=== PATIENT | male | born 1985 | race Caucasian/White ===

== ENCOUNTER 2017-01-06 02:59 | Emergency (ER) | payer SELFPAY ==
[~2017-01-06] VITALS: Ht 167.6 cm; Wt 57.0 kg
[~2017-01-06 02:59] MED LIST: OXYC-392 PO; VITA100T2 PO; WALKER/ADULT/FO1 MIS; XARE10TA PO
[2017-01-06 03:10] VITALS: BP 117/72; PULSE 90; RESP 16; TEMP 98.2; O2SAT 99
--- NOTE | 2017-01-06 03:11 | PD ---
HPI Chief Complaint: Injury Time Seen by Provider: 03:03 Travel History International Travel<30 days: No Contact w/Intl Traveler<30days: No Traveled to known affect area: No History of Present Illness HPI 31-year-old [id number] white male presents to emergency department by EMS for evaluation of right shoulder pain after he tripped and fall prior to arrival. Patient admits to drinking alcohol. He states that he had caught his shoelace on a log as he attempted to climb over. Patient states that he had fallen directly onto his right shoulder. This is his shoulder which she had fractured in the past. Pain is moderate. Worse with movement. No alleviating factors. Denies injury to his head, neck or back. PFSH Past Medical History Narrative Medical Alcohol abuse, right proximal humerus fracture Cardiovascular Problems: No Endocrine: No Genitourinary: No Immune Disorder: No Musculoskeletal: No Neurologic: No Reproductive: No Respiratory: No Immunizations Current: Yes Past Surgical History Narrative Surgical Right proximal humerus ORIF Pacemaker: No Social History Alcohol Use: Yes (OCC) Tobacco Use: Yes Substance Use: No Allergies-Medications (Allergen,Severity, Reaction): Coded Allergies: penicillin G (Unverified Allergy, Unknown, Hives, 01/06/17) Reported Meds & Prescriptions Reported Meds & Active Scripts Active Hydrocodone-Acetaminophen 5-325 mg Tab 1 Tab PO Q6H PRN Review of Systems General / Constitutional: No: Fever Eyes: No: Visual changes HENT: No: Headaches, Neck Stiffness, Neck Pain Cardiovascular: No: Chest Pain or Discomfort Respiratory: No: Shortness of Breath Gastrointestinal: No: Abdominal Pain Genitourinary: No: Dysuria Musculoskeletal: Positive: Arthralgias, Limited ROM, Pain, No: Weakness, Edema Skin: No Rash Neurologic: No: Weakness Psychiatric: No: Depression Endocrine: No: Polydipsia Hematologic/Lymphatic: No: Easy Bruising Physical Exam Narrative GENERAL: Well-developed, well-nourished in no apparent distress. Nontoxic appearing. HEAD: Normocephalic, atraumatic. EYES: Pupils equal round and reactive. Extraocular motions intact. No scleral icterus. No injection or drainage. ENT: Nose clear. Throat without erythema, tonsillar hypertrophy or exudate. Uvula midline. Airway patent. NECK: Trachea midline. Supple, nontender, moves head freely. No central bony tenderness or spasm. CARDIOVASCULAR: Regular rate and rhythm without murmurs, gallops, or rubs. RESPIRATORY: Clear to auscultation. Breath sounds equal bilaterally. No wheezes , rales, or rhonchi. GASTROINTESTINAL: Abdomen soft, non-tender, nondistended. No hepato-splenomegaly , or palpable masses. No guarding. EXTREMITIES: No clubbing, cyanosis, or edema. Examination the right upper extremity reveals tenderness along the clavicle to the acromioclavicular joint. Patient complains of diffuse pain in the glenohumeral joint. Decreased range of motion due to pain. No pain in the mid to distal humerus. No pain in the elbow, wrist or hand. Intact median/ulnar/radial nerves. The left upper extremity as well as lower extremities are without localizing bony tenderness or deformity. BACK: Nontender without deformity. No flank tenderness. NEUROLOGICAL: Awake, alert and oriented x 3 .Cranial nerves grossly intact. Motor and sensory grossly within normal limits. Normal speech. Data Data Last Documented VS Vital Signs Date Time Temp Pulse Resp B/P (MAP) Pulse Ox O2 Delivery O2 Flow Rate FiO2 01/06/17 03:10 98.2 90 16 117/72 (87) 99 Room Air Orders Orders Ice/Cold Pack (01/06/17 03:04) Splint Or Brace Apply/Monitor (01/06/17 03:04) Ketorolac Inj (Toradol Inj) (01/06/17 03:15) Shoulder, Limited(2vws) (01/06/17 03:22) Ed Discharge Order (01/06/17 03:46) Acetamin-Hydrocod 325-5 Mg ([place] 5-325 (01/06/17 04:00) MDM Medical Decision Making Medical Screen Exam Complete: Yes Emergency Medical Condition: Yes Medical Record Reviewed: Yes Interpretation(s) Right shoulder: Patient has a distal clavicle fracture. Prior healed humerus fracture with ORIF Differential Diagnosis MDM: High Differential diagnoses: Fracture, sprain, strain, dislocation, contusion, neurovascular injury Narrative Course Patient's given ice pack, Toradol 60 mg IM, x-ray of the right shoulder. Sling. Diagnosis Primary Impression: Closed right clavicular fracture Qualified Codes: S42.034A - Nondisplaced fracture of lateral end of right clavicle, initial encounter for closed fracture Patient Instructions: General Instructions Additional Instructions: Rest. Icepack for the next few days. Sling. 3 Advil every 6 hours. Lortab for severe pain. Limited alcohol. Follow-up with orthopedics in 3-5 days. Return to the ER for emergencies Med/Other Pt SpecificInfo: Prescription(s) given Scripts Hydrocodone-Acetaminophen (Hydrocodone-Acetaminophen) 5-325 mg Tab 1 TAB PO Q6H Y for PAIN, #20 TAB 0 Refills Prov: Sang Denton MD 01/06/17 Disposition: 01 DISCHARGE HOME Condition: Stable Esau Santos Jan 06, 2017 03:11
[2017-01-06] MEDS ORDERED: KETOROLAC TROMETHAMINE 60 MG/2 ML (IM) VIAL IM ONE (03:15)
[2017-01-06] MEDS ORDERED: HYDR-3516 PO (03:46)
[2017-01-06] MEDS ORDERED: ACETAMINOPHEN/HYDROcodone 325 MG/5 MG TAB PO ONE (04:00)
--- NOTE | 2017-01-06 04:02 | RADRPT ---
EXAM DATE/TIME: 01/06/2017 03:28 [facility] COMPARISON: SHOULDER RIGHT LTD (2VWS), September 20, 2012, 20:36. INDICATIONS : Right shoulder pain post fall. MEDICAL HISTORY : None. SURGICAL HISTORY : Right humerus. ENCOUNTER: Initial ACUITY: 1 day PAIN SCORE: 10/10 LOCATION: Right shoulder. FINDINGS: There is fracturing of the lateral right clavicle. The acromioclavicular joint is normally aligned. T here are surgical hardware at the right humeral head. CONCLUSION: Lateral right clavicle fracture. Bashir Cooper MD on January 06, 2017 at 4:00 Board Certified Radiologist. This report was verified electronically.
== END 2017-01-06 04:14 | disposition home or self-care (01) ==
LOC: NEPD 02:59
DX: S42.034A Nondisplaced fracture of lateral end of right clavicle, initial encounter for closed fracture (principal); W01.0XXA Fall on same level from slipping, tripping and stumbling without subsequent striking against object, initial encounter
CPT/HCPCS: 73030; 96372; 99285; J1885

== ENCOUNTER 2017-01-16 14:07 | Emergency (ER) | payer SELFPAY ==
[~2017-01-16] VITALS: Ht 172.7 cm; Wt 61.0 kg
[~2017-01-16 14:07] MED LIST changes: +HYDR-3516 PO; -OXYC-392 PO; -VITA100T2 PO; -WALKER/ADULT/FO1 MIS; -XARE10TA PO
[2017-01-16 14:08] VITALS: BP 143/83; PULSE 91; RESP 14; TEMP 98.6; O2SAT 99
[2017-01-16] MEDS ORDERED: IBUP-232 PO (15:25)
[2017-01-16] MEDS ORDERED: PERC5TAB12 PO (15:25)
--- NOTE | 2017-01-16 15:25 | PD ---
HPI Chief Complaint: Pain: Acute or Chronic Time Seen by Provider: 14:35 Travel History International Travel<30 days: No Contact w/Intl Traveler<30days: No Traveled to known affect area: No History of Present Illness HPI Patient is a 31-year-old male who presents to emergency room for medication refill. Patient reports that he was seen in emergency room on January 06, 2017 as he suffered a clavicle fracture. Patient reports that he fractured his right lateral clavicle, reports that he was given a prescription for 20 oxycodone's. Patient reports that he has had such severe pain to his right clavicle, he completed full course of his pain medications a few days ago. Patient reports that he has not been able to follow-up with an orthopedic surgeon as he forgot his paperwork and the cab on the ride home. Patient currently requesting a refill on his Percocet. Patient denies any new trauma or injuries to his shoulder/clavicle. Patient denies any chest pain or shortness of breath, no other complaints. PFSH Past Medical History Cardiovascular Problems: No Endocrine: No Genitourinary: No Immune Disorder: No Musculoskeletal: No Neurologic: No Reproductive: No Respiratory: No Immunizations Current: Yes Tetanus Vaccination: < 5 Years Influenza Vaccination: No Past Surgical History Pacemaker: No Social History Alcohol Use: Yes (OCC) Tobacco Use: Yes Substance Use: No Allergies-Medications (Allergen,Severity, Reaction): Coded Allergies: penicillin G (Unverified Allergy, Unknown, Hives, 01/16/17) Reported Meds & Prescriptions Reported Meds & Active Scripts Active Hydrocodone-Acetaminophen 5-325 mg Tab 1 Tab PO Q6H PRN Review of Systems General / Constitutional: No: Fever Eyes: No: Visual changes HENT: No: Headaches Cardiovascular: No: Chest Pain or Discomfort Respiratory: No: Shortness of Breath Gastrointestinal: No: Abdominal Pain Genitourinary: No: Dysuria Musculoskeletal: Positive: Pain (clavicle pain) Skin: No Rash Neurologic: No: Weakness Psychiatric: No: Depression Endocrine: No: Polydipsia Hematologic/Lymphatic: No: Easy Bruising Physical Exam Narrative GENERAL: Well-nourished, well-developed patient. SKIN: Focused skin assessment warm/dry. HEAD: Normocephalic. EYES: No scleral icterus. No injection or drainage. NECK: Supple, trachea midline. No JVD or lymphadenopathy. CARDIOVASCULAR: Regular rate and rhythm without murmurs, gallops, or rubs. RESPIRATORY: Breath sounds equal bilaterally. No accessory muscle use. GASTROINTESTINAL: Abdomen soft, non-tender, nondistended. MUSCULOSKELETAL: No cyanosis, or edema. Patient with no obvious deformities, patient with point tenderness to right lateral clavicle BACK: Nontender without obvious deformity. No CVA tenderness. Data Data Last Documented VS Vital Signs Date Time Temp Pulse Resp B/P (MAP) Pulse Ox O2 Delivery O2 Flow Rate FiO2 01/16/17 14:08 98.6 91 14 143/83 (103) 99 Orders Orders Drug Screen, Random Urine (01/16/17 14:35) [facility] Medical Decision Making Medical Screen Exam Complete: Yes Emergency Medical Condition: Yes Medical Record Reviewed: Yes Interpretation(s) Vital Signs Date Time Temp Pulse Resp B/P (MAP) Pulse Ox O2 Delivery O2 Flow Rate FiO2 01/16/17 14:08 98.6 91 14 143/83 (103) 99 Differential Diagnosis medication refill Narrative Course 31-year-old male who presents to emergency room for refill on his narcotic pain medications. Discussed with patient that he must follow-up with orthopedic surgery or pain management for further scripts for his narcotic pain medications. I did review other options for pain medications including Tylenol as well as Motrin for pain. Discussed my concerns that retirement opiate use could lead to opiate dependence. I will refill a script for 6 tabs of percocet 5mg. He understands need to follow up with either pain management, or his primary care doctor or orthopedic surgeon for further scripts. Diagnosis Primary Impression: Medication refill Referrals: Edison Francisco MD Patient Instructions: General Instructions Additional Instructions: Please follow-up with the orthopedic surgeon as soon as possible Please follow-up with your primary care doctor as soon as possible Do not drive or operate heavy machinery while taking narcotic pain medications. Med/Other Pt SpecificInfo: Prescription(s) given Scripts Oxycodone-Acetaminophen (Percocet) 5-325 mg Tab 1 TAB PO Q6H Y for PAIN, #6 TAB 0 Refills Prov: Peggy Calderón DO 01/16/17 Ibuprofen (Ibuprofen) 600 Mg Tab 600 MG PO Q6H Y for Pain/Inflammation, #40 TAB 0 Refills Prov: Peggy Calderón DO 01/16/17 Disposition: 01 DISCHARGE HOME Condition: Stable Peggy Calderón DO Jan 16, 2017 15:25
== END 2017-01-16 15:50 | disposition home or self-care (01) ==
LOC: NEPD 14:07
DX: Z76.0 Encounter for issue of repeat prescription (principal); M25.511 Pain in right shoulder; Z88.0 Allergy status to penicillin; Z72.0 Tobacco use
CPT/HCPCS: 99281

== ENCOUNTER 2018-04-01 13:45 | Observation (INO) ==
--- NOTE | 2018-04-01 14:04 | ED ---
HPI General Chief Complaint: Extremity Injury, Upper Stated Complaint: wrist complaint Time Seen by Provider: 04/01/18 13:55 Source: patient and family Mode of arrival: ambulatory Limitations: no limitations History of Present Illness HPI narrative: Patient while he was walking and his home he slipped on a wet spot landing on his extended right upper extremity, this occurred last night, patient placed his right upper extremity on a sling to try and assist with the pain however the pain just kept getting worse. Patient rates the pain as a 10 out of 10, worse with movement, improved by immobilization. Patient states allergy to penicillin Patient denies any past medical history Patient admits to past surgical history by Dr. aHckett of tib-fib and shoulder surgery. complaint: injury to: Reports right Onset (ago): day(s) (1) Other injuries: Reports none Handedness: left Place: home Severity: moderate Severity scale (1-10): 8 Relieving factors: cold therapy Exacerbating factors: immobilization Context: Reports fall Associated symptoms: Reports denies other symptoms Treatments prior to arrival: Reports cold therapy Related Data Home Medications Medication Instructions Recorded Confirmed No Known Home Medications 04/01/18 04/01/18 Allergies Allergy/AdvReac Type Severity Reaction Status Date / Time penicillin G Allergy Unknown Hives Unverified 04/01/18 13:53 Review of Systems ROS: all other systems reviewed are negative PMFSH History History Provided By: Patient Medical History Medical History Fracture tibia/fibula (Acute) Patient denies medical problems (Acute) Surgical History Surgical History H/O shoulder surgery (Acute) Social History Social History Substance History: Past History Second Hand Smoke Exposure: Yes Smoking Status: Current every day smoker Tobacco Type: Cigarettes How Often Do You Have a Drink Containing Alcohol: 2 to 4 times a month Recent Travel in [facility] within the Last 8 Weeks: No Recent Out of Country Travel within the Last 8 Weeks: No Exam Narrative Exam Narrative: GENERAL: Well-nourished, well-developed patient in no apparent distress. SKIN: Warm and dry. HEAD: Atraumatic. Normocephalic. EYES: Pupils equal and round. No scleral icterus. No injection or drainage. ENT: No nasal bleeding or discharge. Mucous membranes pink and moist. NECK: Trachea midline. No JVD. CARDIOVASCULAR: Regular rate and rhythm. no rubs or gallops RESPIRATORY: No accessory muscle use. Clear to auscultation. Breath sounds equal bilaterally. GASTROINTESTINAL: Abdomen soft, non-tender, nondistended. No rebound or guarding MUSCULOSKELETAL: Extremities without clubbing, cyanosis, or edema. Obvious deformity to the right wrist very similar to a swan-neck type of deformity, ecchymosis and edema diffusely around the right wrist and hand. However no tenderness to palpation proximally at the elbow shoulder or humerus region. This isolated to the distal forearm and wrist on the right. Capillary refill time less than 3 seconds, present radial and ulnar pulses palpable NEUROLOGICAL: Awake and alert. No obvious cranial nerve deficits. Motor grossly within normal limits. Five out of 5 muscle strength in the arms and legs. Normal speech. PSYCHIATRIC: Appropriate mood and affect; insight and judgment normal. Course Initial Documented Vital Signs Temperature 98.5 F 04/01/18 13:49 Pulse Rate 101 H 04/01/18 13:49 Respiratory Rate 16 04/01/18 13:49 Blood Pressure 124/79 04/01/18 13:49 Pulse Oximetry 98 04/01/18 13:49 Last Documented Vital Signs Temperature 98.5 F 04/01/18 13:49 Pulse Rate 101 H 04/01/18 13:49 Respiratory Rate 18 04/01/18 14:09 Blood Pressure 124/79 04/01/18 13:49 Pulse Oximetry 98 04/01/18 13:49 Medical Decision Making MDM Narrative Medical decision making narrative: The patient was seen as part of the RMA process by my attending physician, Dr. Mosquera. I, Sherri Webster DATA MANAGEMENT SPECIALIST, have reviewed Dr. Mosquera's note, recommended plan of care and disposition. 1459: I spoke with Dr. Maier, orthopedic surgeon, and she recommended to give the patient the option to be splinted and follow-up outpatient for surgery within the week or to be admitted and have surgery tomorrow. The patient chose to be admitted and have surgery tomorrow. Morphine and Zofran ordered. Sugar tong splint ordered. 1533: I spoke with Dr. Owen and report given for patient admission. Medical Screen Exam Complete: Yes Emergency Medical Condition: Yes Differential Diagnosis Differential Diagnosis: Wrist fracture, wrist dislocation, wrist sprain Imaging Data Radiologist's impression: Wrist X-Ray 04/01/18 13:55 CONCLUSION: 1. Angulated fracture of the distal radius. 2. Ulnar styloid fracture. Discharge Plan Discharge Disposition Patient Disposition: ED Admit(ED Internal Use Only) Discharge Condition Condition: Stable Discharge Order Discharge Orders: ED Use Only Admit Order (Routine); Ordered 04/01/18 Ordered By: Sherri Webster Discharge Details Diagnosis: Distal radius fracture, right Physicians Team ED Provider: Burt Mosquera ED Midlevel Provider: Sherri Webster Primary Care Provider: Primary Care Viktoria Mendez Attending Provider: James Owen Other Providers: Vianney Maier Rxs /Orders / Referrals /Forms Prescriptions: No Action No Known Home Medications RF: 0 Status ED Status: Admitted Observation Patient
[2018-04-01] MEDS ORDERED: Morphine Inj 4 MG/ML Vial IV.PUSH ONE ×2 (14:31→15:06)
[2018-04-01] MEDS ORDERED: Sod Chloride 0.9% Inj 1,000 ML IV.CONT SCH (14:45)
[2018-04-01] MEDS ORDERED: Acetaminophen 325 MG Tablet PO PRN (15:31)
--- NOTE | 2018-04-01 15:31 | XR ---
EXAM DATE: 04/01/2018 2:17 PM EST AGE/SEX: 32 years / Male INDICATIONS: Fall. Right wrist deformity and pain. CLINICAL DATA: This is the patient's initial encounter. Patient reports that signs and symptoms have been present for 1 day and indicates a pain score of 10/10. MEDICAL/SURGICAL HISTORY: None. None. COMPARISON: No prior exams available for comparison. FINDINGS: 3 views of the right wrist. There is a comminuted fracture of the distal radius with the dominant hor izontal fracture line 2.5 cm proximal to the radiocarpal joint. Approximately 23 degrees dorsal angul ation of the distal fragment. No definite involvement of the radiocarpal or distal radioulnar joints. Ulnar styloid fracture is noted with several millimeters displacement. CONCLUSION: 1. Angulated fracture of the distal radius. 2. Ulnar styloid fracture. Electronically signed by: Gabriel Casas MD Board Certified Radiologist 04/01/2018 3:29 PM EST
--- NOTE | 2018-04-01 15:58 | P.HPIM ---
History of Present Illness Primary Care Physician: No Primary Care Physician Chief Complaint: Arm pain History of Present Illness: The patient is a 32-year-old male with no significant past medical history who is presenting to the hospital following a mechanical fall. Yesterday he was cleaning his place with his roommate and he slipped on a wet spot. He fell down with his right hand outstretched and it bent backwards on impact. He had significant pain but masked it and pretended that everything was normal. He did not take any pain medication at home. He decided to come into the hospital today because of pain became unbearable. He currently has a splint in place and is anticipating surgery in the morning. He denies any shortness of breath. He wants something to drink. He says his pain is controlled but he would appreciate more pain medication. He does have sensation in his right hand. Discussed with nursing. Review of Systems Review of Systems: all other systems reviewed are negative COUNTS INCLUDE 234 BEDS AT THE [facility] Medical History Medical History Fracture tibia/fibula (Acute) Patient denies medical problems (Acute) Surgical History Surgical History H/O shoulder surgery (Acute) Family History Family History Other Kidney disease Social History Social History Substance History: Past History Second Hand Smoke Exposure: Yes Smoking Status: Current every day smoker Tobacco Type: Cigarettes How Often Do You Have a Drink Containing Alcohol: 2 to 4 times a month Recent Travel in [facility] within the Last 8 Weeks: No Recent Out of Country Travel within the Last 8 Weeks: No Immunization History Tetanus Immunization: Unsure Medications and Allergies Allergies Allergy/AdvReac Type Severity Reaction Status Date / Time penicillin G Allergy Unknown Hives Unverified 04/01/18 13:53 Home Medications Medication Instructions Recorded Confirmed Type No Known Home Medications 04/01/18 04/01/18 History Active Medications: Active Medications Acetaminophen (Tylenol) 650 mg PO Q4H PRN PRN Reason: Temp > 100.4, PAIN 1-2 Sodium Chloride (Ns Inj) 1,000 mls @ 125 mls/hr IV.CONT .Q8H ANTHONY Stop: 04/01/18 22:44 Morphine Sulfate (Morphine Inj) 4 mg IV.PUSH Q4H PRN PRN Reason: BREAKTHROUGH PAIN Ondansetron HCl (Zofran Inj) 4 mg IV.PUSH Q6H PRN PRN Reason: NAUSEA OR VOMITING Oxycodone/Acetaminophen (Percocet 5/325 Mg) 1 tab PO Q4H PRN PRN Reason: PAIN SCALE 3 TO 10 Senna/Docusate Sodium (Halina-Colace) 1 tab PO BID [facility] Sodium Chloride (Ns Flush) 2 ml IV.FLUSH PRN PRN PRN Reason: FLUSH AFTER USING IV ACCESS Sodium Chloride (Ns Flush) 2 ml IV.FLUSH BID [facility] Physical Exam Vital signs: Vital Signs 04/01/18 13:49 04/01/18 14:09 Temperature 98.5 F Pulse Rate 101 H Respiratory Rate 16 18 Blood Pressure 124/79 Pulse Oximetry 98 Intake & Output 03/31/18 04/01/18 04/01/18 18:59 06:59 18:59 Weight 61.235 kg Narrative: GENERAL: Well-nourished, well-developed patient in no apparent distress. SKIN: Warm and dry. HEAD: Atraumatic. Normocephalic. EYES: Pupils equal and round. No scleral icterus. No injection or drainage. ENT: No nasal bleeding or discharge. Mucous membranes pink and moist. NECK: Trachea midline. No JVD. CARDIOVASCULAR: Regular rate and rhythm. No rubs or gallops. RESPIRATORY: No accessory muscle use. Clear to auscultation. Breath sounds equal bilaterally. GASTROINTESTINAL: Abdomen soft, non-tender, nondistended. No rebound or guarding. MUSCULOSKELETAL: Right upper extremity in splint. Swelling is noted. Able to move fingers around. NEUROLOGICAL: Awake and alert. No obvious cranial nerve deficits. Motor grossly within normal limits. Five out of 5 muscle strength in the arms and legs. Normal speech. Results Imaging Impressions Wrist X-Ray 04/01/18 13:55 CONCLUSION: 1. Angulated fracture of the distal radius. 2. Ulnar styloid fracture. Caprini VTE Risk Assessment Caprini VTE Risk Assessment: No/Low Risk (score <= 1) Caprini Risk Assessment Model: Point Value = 1 Point Value = 2 Point Value = 3 Point Value = 5 Age 41-60 Minor surgery BMI > 25 kg/m2 Swollen legs Varicose veins or History of unexplained or recurrent spontaneous Oral contraceptives or hormone replacement Sepsis (< 1 month) Serious lung disease, including pneumonia (< 1 month) Abnormal pulmonary function Acute myocardial infarction Congestive heart failure (< 1 month) History of inflammatory bowel disease Medical patient at bed rest Age 61-74 Arthroscopic surgery Major open surgery (> 45 min) Laparoscopic surgery (> 45 min) Malignancy Confined to bed (> 72 hours) Immobilizing plaster cast Central venous access Age >= 75 History of VTE Family history of VTE Factor V Leiden Prothrombin [id number] Lupus anticoagulant Anticardiolipin antibodies Elevated serum homocysteine Heparin-induced thrombocytopenia Other congenital or acquired thrombophilia Stroke (< 1 month) Elective arthroplasty Hip, pelvis, or leg fracture Acute spinal cord injury (< 1 month) Prophylaxis Regimen: Total Risk Factor Score Risk Level Prophylaxis Regimen 0-1 Low Early ambulation 2 Moderate Order ONE of the following: *Sequential Compression Device (SCD) *Heparin 5000 units SQ BID 3-4 Higher Order ONE of the following medications: *Heparin 5000 units SQ TID *Enoxaparin/Lovenox 40 mg SQ daily (WT < 150 kg, CrCl > 30 mL/min) *Enoxaparin/Lovenox 30 mg SQ daily (WT < 150 kg, CrCl > 10-29 mL/min) *Enoxaparin/Lovenox 30 mg SQ BID (WT < 150 kg, CrCl > 30 mL/min) AND/OR *Sequential Compression Device (SCD) 5 or more Highest Order ONE of the following medications: *Heparin 5000 units SQ TID (Preferred with Epidurals) *Enoxaparin/Lovenox 40 mg SQ daily (WT < 150 kg, CrCl > 30 mL/min) *Enoxaparin/Lovenox 30 mg SQ daily (WT < 150 kg, CrCl > 10-29 mL/min) *Enoxaparin/Lovenox 30 mg SQ BID (WT < 150 kg, CrCl > 30 mL/min) AND *Sequential Compression Device (SCD) Assessment and Plan Plan Radius/ulnar fractures S/t mechanical fall. Imaging: Angulated fracture of the distal radius; Ulnar styloid fracture. Orthopedic surgery was consulted. -Continue right sugar tong splint. -Make the patient n.p.o. at midnight. -Pain control with a bowel regimen. -Follow-up with orthopedic surgery. Anticipate surgery in the morning. -Labs are pending. Nicotine dependence The patient smokes a pack daily. He has no intention to quit. -Cessation instruction. PPx: Ambulation
[2018-04-01 16:06] LABS: Baso # (Auto) 0.1 th/mm3 (0.0-0.2); Baso % (Auto) 0.9 % (0.0-2.0); Eos # (Auto) 0.2 th/mm3 (0.0-0.4); Eos % (Auto) 2.6 % (0.0-4.0); Hematocrit 39.4 % (39.0-51.0); Hemoglobin 13.5 gm/dL (13.0-17.0); Lymph # (Auto) 3.2 th/mm3 (1.0-4.8); Lymph % (Auto) 52.8 % (9.0-44.0); Mean Corpuscular HGB Conc 34.3 % (32.0-36.0); Mean Corpuscular Volume 96.1 fL (80.0-100.0); Mean Platelet Volume 9.5 fL (7.0-11.0); Mono # (Auto) 0.7 th/mm3 (0.0-0.9); Mono % (Auto) 11.7 % (0.0-8.0); Neut # (Auto) 1.9 th/mm3 (1.8-7.7); Platelet Count 120 th/mm3 (150-450); Red Cell Distribution Width 15.2 % (11.6-17.2)
[2018-04-01 16:15] LABS: Activated Partial Thrombo Time 25.4 sec (23.4-31.7); Prothrombin Time 10.5 sec (9.8-11.6)
[2018-04-01 16:24] LABS: Anion Gap 9 meq/L (5-15); Blood Urea Nitrogen 3 mg/dL (7-18); Calcium 8.6 mg/dL (8.5-10.1); Carbon Dioxide 27.6 meq/L (21.0-32.0); Chloride 101 meq/L (98-107); Glomerular Filtration Rate Greater Than 89 mL/min (>89); Glucose,Random 89 mg/dL (74-106); Potassium 3.5 meq/L (3.5-5.1); Sodium 138 meq/L (136-145)
--- NOTE | 2018-04-01 16:24 | XR ---
EXAM DATE: 04/01/2018 4:04 PM EST AGE/SEX: 32 years / Male INDICATIONS: Post reduction right wrist. CLINICAL DATA: This is the patient's subsequent encounter. Patient reports that signs and symptoms h ave been present for 1 day and indicates a pain score of 10/10. MEDICAL/SURGICAL HISTORY: None. None. [place] [facility] [place] 3[place]/01/2018. . FINDINGS: 3 views of the right wrist in cast demonstrates comminuted distal radial fracture with similar degree of angulation frontal projection and less angulation in lateral projection when compared to the prec asting film. Nondisplaced fracture of the ulnar styloid. The carpus is in normal alignment. CONCLUSION: Comminuted Colles' fracture in cast. Electronically signed by: Blaine Carias MD Board Certified Radiologist 04/01/2018 4:23 PM EST
[2018-04-01] MEDS: Senna/Docusate Sodium 8.6/50 MG Tablet PO SCH (20:30)
[2018-04-01] MEDS: Morphine Inj 4 MG/ML Vial IV.PUSH PRN (23:49)
--- NOTE | 2018-04-02 07:46 | P.CONOP ---
[facility] Orthopedics Consult Note - [facility] Consult date: 04/02/18 Consult reason: fracture Chief complaint: Right distal radial fracture Narrative: The patient is a 32-year-old male with no significant past medical history who is presenting to the hospital following a mechanical fall. Yesterday he was cleaning his place with his roommate and he slipped on a wet spot. He fell down with his right hand outstretched and it bent backwards on impact. He had significant pain but masked it and pretended that everything was normal. He did not take any pain medication at home. He decided to come into the hospital today because of pain became unbearable. He currently has a splint in place and is anticipating surgery in the morning. He denies any shortness of breath. He wants something to drink. Review of Systems Denies fevers, chills, nausea, vomiting. Denies chest pain, cough, shortness of breath. Denies abdominal pain or change in urination. Denies back pain, weakness, numbness or tingling. Denies dizziness, blurry vision or throat pain. Reports right wrist pain PMFSH - History History Provided By: Patient - Medical History Medical History: Medical History (Last Reviewed 04/01/18 @ 15:52 by James Owen DO) Fracture tibia/fibula Patient denies medical problems - Surgical History Surgical History: Surgical History (Last Reviewed 04/01/18 @ 15:52 by James Owen DO) H/O shoulder surgery - Family History Family History: Family History (Last Reviewed 04/01/18 @ 15:53 by James Owen DO) Other Kidney disease - Tobacco History Second Hand Smoke Exposure: Yes Tobacco Use In Past 30 Days: Yes Smoking Status: Heavy tobacco smoker Tobacco Type: Cigarettes - Alcohol History How Often Do You Have a Drink Containing Alcohol: 2 to 3 times a week - Substance Use History Substance History: No History of Abuse - Travel History Recent Travel in the [place] Within the Last 8 Weeks: No Recent Travel Out of the Country Within the Last 8 Weeks: No - Immunization History Tetanus Immunization: Unsure Medications and Allergies Active Medications: Active Medications Acetaminophen (Tylenol) 650 mg PO Q4H PRN PRN Reason: Temp > 100.4, PAIN 1-2 Morphine Sulfate (Morphine Inj) 4 mg IV.PUSH Q4H PRN PRN Reason: BREAKTHROUGH PAIN Last Admin: 04/01/18 23:49 Dose: 4 mg Ondansetron HCl (Zofran Inj) 4 mg IV.PUSH Q6H PRN PRN Reason: NAUSEA OR VOMITING Oxycodone/Acetaminophen (Percocet 5/325 Mg) 1 tab PO Q4H PRN PRN Reason: PAIN SCALE 3 TO 10 Last Admin: 04/02/18 07:31 Dose: 1 tab Senna/Docusate Sodium (Halina-Colace) 1 tab PO BID [facility] Last Admin: 04/01/18 20:30 Dose: 1 tab Sodium Chloride (Ns Flush) 2 ml IV.FLUSH PRN PRN PRN Reason: FLUSH AFTER USING IV ACCESS Sodium Chloride (Ns Flush) 2 ml IV.FLUSH BID [facility] Last Admin: 04/01/18 23:50 Dose: Not Given Allergies Allergy/AdvReac Type Severity Reaction Status Date / Time penicillin G Allergy Mild Hives Verified 04/02/18 07:40 Home Medications Medication Instructions Recorded Confirmed Type No Known Home Medications 04/01/18 04/01/18 History Exam Vital signs: Vital Signs 04/01/18 13:49 04/01/18 14:09 04/01/18 18:16 Temperature 98.5 F 98.1 F Pulse Rate 101 H 76 Respiratory Rate 16 18 15 Blood Pressure 124/79 116/75 Pulse Oximetry 98 97 04/01/18 19:31 04/01/18 23:56 04/02/18 03:32 Temperature 97.9 F 97.3 F L 98.3 F Pulse Rate 77 87 68 Respiratory Rate 16 12 12 Blood Pressure 109/69 112/76 121/79 Pulse Oximetry 95 97 97 04/02/18 07:40 Temperature 99.3 F Pulse Rate 56 L Respiratory Rate 15 Blood Pressure 142/86 H Pulse Oximetry 100 Intake & Output 04/01/18 04/02/18 04/02/18 18:59 06:59 18:59 Intake Total 1000 / 1000 Balance 1000 / 1000 Weight 61.235 kg Intake: IV 1000 / 1000 NS Inj 1,000 ML @ 125 mls/hr IV 1000 / 1000 .CONT .Q8H [facility] Rx#:[id number] Other: # Voids 1 Date of Last Bowel Movement 03/31/18 03/31/18 Weight On Admission 61.235 kg Narrative: Awake, alert, no acute distress Normocephalic Pupils equal No JVD Moist mucous membranes Nonlabored respirations Soft nontender abdomen Regular rate Right upper extremity: Splint in place over forearm and wrist. Patient can wiggle fingers although with discomfort. Sensation intact. Brisk cap refill. Left upper extremity:No tenderness to palpation or visible deformities. Full active range of motion and strength throughout. Sensation intact. Brisk cap refill. Right lower extremity: No tenderness to palpation or visible deformities. Full active range of motion and strength throughout. Sensation intact. Brisk cap refill. Left lower extremity:No tenderness to palpation or visible deformities. Full active range of motion and strength throughout. Sensation intact. Brisk cap refill. No rash Normal affect Results - Labs Result Diagrams: 04/01/18 15:30 04/01/18 15:30 Labs: Laboratory Results - last 24 hr 04/01/18 04/01/18 04/01/18 15:30 15:30 15:30 WBC 6.0 RBC 4.10 L Hgb 13.5 Hct 39.4 MCV 96.1 MCH 33.0 MCHC 34.3 RDW 15.2 Plt Count 120 L MPV 9.5 Neut % (Auto) 32.0 Lymph % (Auto) 52.8 H [place]ink % (Auto) 11.7 H Eos % (Auto) 2.6 Baso % (Auto) 0.9 Neut # (Auto) 1.9 Lymph # (Auto) 3.2 [place] # (Auto) 0.7 Eos # (Auto) 0.2 Baso # (Auto) 0.1 WBC Differential . Differential Comment Auto diff final PT 10.5 INR 1.0 APTT 25.4 Sodium 138 Potassium 3.5 Chloride 101 Carbon Dioxide 27.6 Anion Gap 9 BUN 3 L Creatinine 0.71 Estimated GFR Greater than 89 Random Glucose 89 Calcium 8.6 Blood Type Blood Type Recheck Antibody Screen 04/01/18 15:30 WBC RBC Hgb Hct MCV MCH MCHC RDW Plt Count MPV Neut % (Auto) Lymph % (Auto) [place]ink % (Auto) Eos % (Auto) Baso % (Auto) Neut # (Auto) Lymph # (Auto) Spink # (Auto) Eos # (Auto) Baso # (Auto) WBC Differential Differential Comment PT INR APTT Sodium Potassium Chloride Carbon Dioxide Anion Gap BUN Creatinine Estimated GFR Random Glucose Calcium Blood Type A Positive Blood Type Recheck Not needed Antibody Screen Negative - Diagnostic results Imaging: Impressions Wrist X-Ray 04/01/18 13:55 CONCLUSION: 1. Angulated fracture of the distal radius. 2. Ulnar styloid fracture. Wrist X-Ray 04/01/18 15:43 CONCLUSION: Comminuted Colles' fracture in cast. Assessment and Plan - Assessment and Plan 32-year-old male with closed displaced right distal radius fracture Radiographs reviewed by myself and with the patient. I discussed with the patient his options of management including nonoperative care versus operative intervention. After reduction in the emergency department and splinting, patient continues to have dorsal tilt along with loss of radial height and inclination. 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 Operative intervention in the form of open reduction internal fixation was discussed with the patient. Risks of surgery including but not limited to: Infection, nonunion or malunion, hardware malposition failure, neurovascular injury, persistent wrist pain and/or stiffness, possible need for further surgery, and other unforeseen complications were all discussed with the patient. At this time he would like to proceed with operative intervention. Patient has been n.p.o. since midnight with plan for surgery today. Postoperative course was discussed with the patient. I explained to the patient that he will likely be nonweightbearing for at least 6-8 weeks as this fracture starts to heal. He will be placed back into a splint postoperatively. Should his pain be controlled, he may be able to be discharged from the hospital today. I did discuss with the patient smoking cessation and the effects of nicotine on bone and wound healing. Patient has voiced understanding and will attempt to cut back and possibly quit.
[2018-04-02 08:24] LABS: Baso % (Auto) 0.9 % (0.0-2.0); Eos # (Auto) 0.1 th/mm3 (0.0-0.4); Eos % (Auto) 2.1 % (0.0-4.0); Hematocrit 39.8 % (39.0-51.0); Hemoglobin 13.4 gm/dL (13.0-17.0); Lymph # (Auto) 1.9 th/mm3 (1.0-4.8); Lymph % (Auto) 38.1 % (9.0-44.0); Mean Corpuscular HGB Conc 33.8 % (32.0-36.0); Mean Corpuscular Hemoglobin 32.7 pg (27.0-34.0); Mean Corpuscular Volume 96.7 fL (80.0-100.0); Mean Platelet Volume 9.9 fL (7.0-11.0); Mono # (Auto) 0.7 th/mm3 (0.0-0.9); Mono % (Auto) 14.1 % (0.0-8.0); Neut # (Auto) 2.2 th/mm3 (1.8-7.7); Neut % (Auto) 44.8 % (16.0-70.0); Platelet Count 117 th/mm3 (150-450); Red Blood Count 4.11 mil/mm3 (4.50-5.90); Red Cell Distribution Width 15.1 % (11.6-17.2)
[2018-04-02 08:34] LABS: Prothrombin Time 10.5 sec (9.8-11.6)
[2018-04-02] MEDS: Senna/Docusate Sodium 8.6/50 MG Tablet PO SCH ×2 (08:45→20:02)
[2018-04-02 08:49] LABS: Anion Gap 9 meq/L (5-15); Blood Urea Nitrogen 4 mg/dL (7-18); Calcium 8.9 mg/dL (8.5-10.1); Carbon Dioxide 29.5 meq/L (21.0-32.0); Chloride 100 meq/L (98-107); Glomerular Filtration Rate Greater Than 89 mL/min (>89); Glucose,Random 86 mg/dL (74-106); Potassium 3.4 meq/L (3.5-5.1); Sodium 138 meq/L (136-145)
[2018-04-02] MEDS ORDERED: Chlorhexidine Gluconate 2% 1 Pack (2 Cloths) TOPICAL ONE (11:11)
[2018-04-02] MEDS ORDERED: Metoprolol Tartrate 25 MG Tablet PO ONE (11:11)
[2018-04-02] MEDS: Morphine Inj 4 MG/ML Vial IV.PUSH PRN ×3 (11:13→21:10)
[2018-04-02] MEDS ORDERED: Sodium Chlor 0.9% Inj 500 ML IV.SIG SCH (12:00)
[2018-04-02] MEDS ORDERED: Sodium Chlor 0.9% Inj 250 ML IV.CONT ONE (12:56)
[2018-04-02] MEDS ORDERED: Lidocaine PF 1% Inj 5 ML Syringe OTHER ONE (12:56)
[2018-04-02] MEDS ORDERED: Bupivacaine/Epinephrine Inj 0.25% 50 ML Vial ONE (13:08)
--- NOTE | 2018-04-02 13:41 | P.PNIM ---
Subjective Interval history: The patient was resting in bed. He said that his surgery was delayed. He said that he wanted to go home following the procedure if possible. No acute concerns at this time. Physical Exam Vital signs: Vital Signs 04/01/18 13:49 04/01/18 14:09 04/01/18 18:16 Temperature 98.5 F 98.1 F Pulse Rate 101 H 76 Respiratory Rate 16 18 15 Blood Pressure 124/79 116/75 Pulse Oximetry 98 97 04/01/18 19:31 04/01/18 23:56 04/02/18 03:32 Temperature 97.9 F 97.3 F L 98.3 F Pulse Rate 77 87 68 Respiratory Rate 16 12 12 Blood Pressure 109/69 112/76 121/79 Pulse Oximetry 95 97 97 04/02/18 07:40 04/02/18 11:53 Temperature 99.3 F 99.1 F Pulse Rate 56 L 56 L Respiratory Rate 15 16 Blood Pressure 142/86 H 151/97 H Pulse Oximetry 100 100 Intake & Output 04/01/18 04/02/18 04/02/18 18:59 06:59 18:59 Intake Total 1000 / 1000 Balance 1000 / 1000 Weight 61.235 kg Intake: IV 1000 / 1000 NS Inj 1,000 ML @ 125 mls/hr IV 1000 / 1000 .CONT .Q8H [facility] Rx#:[id number] Other: # Voids 1 Date of Last Bowel Movement 03/31/18 03/31/18 03/31/18 Weight On Admission 61.235 kg Narrative: GENERAL: Well-nourished, well-developed patient in no apparent distress. SKIN: Warm and dry. HEAD: Atraumatic. Normocephalic. EYES: Pupils equal and round. No scleral icterus. No injection or drainage. ENT: No nasal bleeding or discharge. Mucous membranes pink and moist. NECK: Trachea midline. No JVD. CARDIOVASCULAR: Regular rate and rhythm. No rubs or gallops. RESPIRATORY: No accessory muscle use. Clear to auscultation. Breath sounds equal bilaterally. GASTROINTESTINAL: Abdomen soft, non-tender, nondistended. No rebound or guarding. MUSCULOSKELETAL: Right upper extremity in splint. Swelling is noted. Able to move fingers around. NEUROLOGICAL: Awake and alert. No obvious cranial nerve deficits. Motor grossly within normal limits. Five out of 5 muscle strength in the arms and legs. Normal speech. Results Labs CBC & Chem 7: 04/02/18 07:00 04/02/18 07:00 Imaging Imaging: Impressions Wrist X-Ray 04/01/18 13:55 CONCLUSION: 1. Angulated fracture of the distal radius. 2. Ulnar styloid fracture. Wrist X-Ray 04/01/18 15:43 CONCLUSION: Comminuted Colles' fracture in cast. Assessment and Plan Plan Right radius/ulnar fractures S/t mechanical fall. Imaging: Angulated fracture of the distal radius; Ulnar styloid fracture. Orthopedic surgery consult appreciated. -Continue right sugar tong splint. -keep NPO in anticipation of surgery today per ortho. -NWB right upper extremity for 6-8 weeks. -Pain control with a bowel regimen. Nicotine dependence The patient smokes a pack daily. He has no intention to quit. -Cessation instruction. Hypokalemia Exacerbated by NPO status. -replete with PO KCl and ADAT following surgery. PPx: Ambulation Discharge Planning: Possible d/c after surgery if pain is controlled and cleared by surgery Progress Note: Quality VTE Deep Vein Thrombosis/Pulmonary Embolism Present on Admission: No
[2018-04-02] MEDS ORDERED: Post-op Orders (for Pharmacy) OTHER STA (14:43)
--- NOTE | 2018-04-02 14:43 | P.OP ---
Date of procedure: 04/02/18 Procedure: Open reduction internal fixation closed right distal radius extra-articular fracture Implants: [employer]ynthes Anesthesia: GETA Surgeon: Vianney Maier MD Estimated blood loss (mL): 5 Pathology: none sent Operation and Findings: Indications for procedure: 32-year-old gentleman who had a mechanical trip and fall and sustained a closed right displaced distal radius fracture. Options of management were discussed with the patient. Risks, benefits, alternatives were discussed. At this time the patient wished to proceed with the above-mentioned procedure. Description of procedure: Patient was brought back to the operating room where general anesthesia then ensued. Patient was then carefully positioned supine on the operating room table with all bony promises well-padded. A tourniquet was placed on the upper arm and patient was prepped and draped in standard sterile fashion. A timeout was performed to addendum by the correct patient, side, site and procedure to be performed. Preoperative antibiotics were given within 1 hour of incision. The arm was exsanguinated and tourniquet inflated to 250 mmHg. A volar Kevin approach was then made to the distal radius with sharp dissection through the skin and subtendinous tissue. Hemostasis was achieved with electrocautery. The FCR tendon sheath was incised and mobilized ulnarly. The floor of the FCR tendon sheath was then incised and pronator quadratus elevated off of the radial aspect of the distal radius. The fracture site was cleaned of its soft tissue. The fracture was then reduced with the use of traction and rotation. A distal radius plate was then affixed and held temporarily with K wires. At this time, the fracture was found to be in acceptable alignment and distal locking screws were placed through the plate. Proximal nonlocking cortical screws were then placed. K wires were removed. The fracture appeared to be in acceptable alignment with mu-ism of volar tilt and radial height and inclination. All hardware appeared to be out of the joint surface. The wound was thoroughly irrigated with normal saline laden with antibiotics. The tourniquet was deflated and hemostasis achieved. Local anesthetic was then used with quarter percent Marcaine with epinephrine. The deep tissue was closed with Vicryl sutures and the skin closed with nylon. Sterile dressings were applied along with a short arm splint. Patient was awoken from general anesthesia without complication. Disposition: Nonweightbearing right upper extremity in splint. Patient may be discharged when pain is well controlled, possibly later today. Follow-up in office in 2 weeks.
[2018-04-02] MEDS ORDERED: *Meperidine Inj 25 MG/ML Vial PERIprocedural Use ONLY ONE (14:52)
[2018-04-02] MEDS ORDERED: fentaNYL Citrate Inj 100 MCG/2 ML Ampul ONE (14:58)
[2018-04-02] MEDS ORDERED: *morphine SULFATE 4 MG/ML PERIprocedure ONLY ONE ×3 (15:04→15:28)
[2018-04-02] MEDS ORDERED: Labetalol HCl Inj 20 MG/4 ML Vial ONE (15:18)
--- NOTE | 2018-04-02 15:20 | XR ---
EXAM DATE: 04/02/2018 3:01 PM EST AGE/SEX: 32 years / Male INDICATIONS: Open reduction right wrist. CLINICAL DATA: This is the patient's subsequent encounter. Patient reports that signs and symptoms h ave been present for 2 days and indicates a pain score of Nonresponsive. MEDICAL/SURGICAL HISTORY: Non-responsive. Non-responsive. [place] [facility] [place] 3[place]. . FINDINGS: Plate and screw fixation of comminuted distal radial fracture. Hardware appears intact and well-posit ioned. There is near-anatomic alignment of the fracture fragments. CONCLUSION: 1. Plate and screw fixation of the distal radius, as above. Electronically signed by: Hayes Lopez MD Board Certified Radiologist 04/02/2018 3:19 PM EST
[2018-04-02] MEDS ORDERED: HYDROmorphone PF Inj 0.5 MG/0.5 ML Syringe ONE ×3 (15:39→16:01)
[2018-04-02 19:53] VITALS: O2SAT 99
[2018-04-03 04:57] VITALS: BP 150/93; PULSE 61; RESP 20; TEMP 98.6
--- NOTE | 2018-04-03 08:13 | P.PNOP ---
Subjective Interval history: Resting comfortable he. Reports RIGHT wrist pain Physical Exam Vital signs: Vital Signs 04/02/18 11:53 04/02/18 14:50 04/02/18 15:00 Temperature 99.1 F 98.6 F Pulse Rate 56 L 80 71 Respiratory Rate 16 12 12 Blood Pressure 151/97 H 183/114 H 183/107 H Pulse Oximetry 100 100 99 04/02/18 15:01 04/02/18 15:02 04/02/18 15:06 Temperature Pulse Rate 67 77 Respiratory Rate 12 12 23 Blood Pressure 178/101 H 173/99 H Pulse Oximetry 98 99 04/02/18 15:15 04/02/18 15:17 04/02/18 15:30 Temperature Pulse Rate 68 64 Respiratory Rate 12 20 12 Blood Pressure 171/104 H 170/102 H Pulse Oximetry 97 95 04/02/18 15:31 04/02/18 15:32 04/02/18 15:45 Temperature Pulse Rate 70 63 Respiratory Rate 14 12 21 Blood Pressure 162/99 H 160/90 H Pulse Oximetry 95 92 L 04/02/18 16:00 04/02/18 19:51 04/02/18 23:38 Temperature 97.8 F 98.3 F Pulse Rate 64 55 L 57 L Respiratory Rate 14 12 18 Blood Pressure 158/88 H 140/82 162/98 H Pulse Oximetry 98 99 99 04/03/18 04:55 Temperature 98.6 F Pulse Rate 61 Respiratory Rate 20 Blood Pressure 150/93 H Pulse Oximetry 99 Intake & Output 04/02/18 04/03/18 04/03/18 18:59 06:59 18:59 Intake Total 1300 / 1300 100 / 100 Output Total 205 / 205 Balance 1095 / 1095 100 / 100 Intake: IV 800 / 800 100 / 100 LR 1000 mL Inj 1,000 ML @ 30 700 / 700 mls/hr IV.SIG .Q24H [facility] Rx#: [id number] Ancef Inj 1,000 MG In NS Inj 100 / 100 100 / 100 100 ML @ 200 mls/hr IV.SIG Q8H [facility] Rx#:[id number] Anesthesia Amount 500 / 500 Output: Emesis 200 / 200 Estimated Blood Loss 5 / 5 Other: Date of Last Bowel Movement 03/31/18 Narrative: Awake, alert, no acute distress RIGHT upper external: Splint in place over forearm and wrist. Moderate swelling around the fingers. Patient is able to wiggle fingers. Sensation is grossly intact although slight numbness and tingling. Brisk cap refill Results - Labs CBC & Chem 7: 04/02/18 07:00 04/02/18 07:00 Laboratory Results - last 24 hr 04/02/18 04/02/18 04/02/18 07:00 07:00 07:00 WBC 5.0 RBC 4.11 L Hgb 13.4 Hct 39.8 MCV 96.7 MCH 32.7 MCHC 33.8 RDW 15.1 Plt Count 117 L MPV 9.9 Neut % (Auto) 44.8 Lymph % (Auto) 38.1 [place] % (Auto) 14.1 H Eos % (Auto) 2.1 Baso % (Auto) 0.9 Neut # (Auto) 2.2 Lymph # (Auto) 1.9 [place] # (Auto) 0.7 Eos # (Auto) 0.1 Baso # (Auto) 0.0 WBC Differential . Differential Comment Auto diff final PT 10.5 INR 1.0 Sodium 138 Potassium 3.4 L Chloride 100 Carbon Dioxide 29.5 Anion Gap 9 BUN 4 L Creatinine 0.68 Estimated GFR Greater than 89 Random Glucose 86 Calcium 8.9 - Imaging Impressions Wrist X-Ray 04/02/18 00:00 CONCLUSION: 1. Plate and screw fixation of the distal radius, as above. Assessment and Plan - Assessment and Plan 32-year-old male with closed displaced right distal radius fracture, Postop day 1 status post ORIF RIGHT wrist 1. Nonweightbearing RIGHT upper extremity in splint. Splint should remain in place until follow-up. 2. Patient may be discharged with follow-up in approximately 2 weeks in my office.
--- NOTE | 2018-04-03 10:23 | P.PNIM ---
Subjective Interval history: The pt was discharged yesterday but spent the night because he was painful and vomiting following surgery. Apparently he felt better this AM and was discharged home prior to being seen. He was seen by orthopedic surgery. Physical Exam Vital signs: Vital Signs 04/02/18 11:53 04/02/18 14:50 04/02/18 15:00 Temperature 99.1 F 98.6 F Pulse Rate 56 L 80 71 Respiratory Rate 16 12 12 Blood Pressure 151/97 H 183/114 H 183/107 H Pulse Oximetry 100 100 99 04/02/18 15:01 04/02/18 15:02 04/02/18 15:06 Temperature Pulse Rate 67 77 Respiratory Rate 12 12 23 Blood Pressure 178/101 H 173/99 H Pulse Oximetry 98 99 04/02/18 15:15 04/02/18 15:17 04/02/18 15:30 Temperature Pulse Rate 68 64 Respiratory Rate 12 20 12 Blood Pressure 171/104 H 170/102 H Pulse Oximetry 97 95 04/02/18 15:31 04/02/18 15:32 04/02/18 15:45 Temperature Pulse Rate 70 63 Respiratory Rate 14 12 21 Blood Pressure 162/99 H 160/90 H Pulse Oximetry 95 92 L 04/02/18 16:00 04/02/18 19:51 04/02/18 23:38 Temperature 97.8 F 98.3 F Pulse Rate 64 55 L 57 L Respiratory Rate 14 12 18 Blood Pressure 158/88 H 140/82 162/98 H Pulse Oximetry 98 99 99 04/03/18 04:55 Temperature 98.6 F Pulse Rate 61 Respiratory Rate 20 Blood Pressure 150/93 H Pulse Oximetry 99 Intake & Output 04/02/18 04/03/18 04/03/18 18:59 06:59 18:59 Intake Total 1300 / 1300 100 / 100 Output Total 205 / 205 Balance 1095 / 1095 100 / 100 Intake: IV 800 / 800 100 / 100 LR 1000 mL Inj 1,000 ML @ 30 700 / 700 mls/hr IV.SIG .Q24H [facility] Rx#: [id number] Ancef Inj 1,000 MG In NS Inj 100 / 100 100 / 100 100 ML @ 200 mls/hr IV.SIG Q8H [facility] Rx#:[id number] Anesthesia Amount 500 / 500 Output: Emesis 200 / 200 Estimated Blood Loss 5 / 5 Other: Date of Last Bowel Movement 03/31/18 Narrative: Not seen 04/03 Results Labs CBC & Chem 7: 04/02/18 07:00 04/02/18 07:00 Imaging Imaging: Impressions Wrist X-Ray 04/02/18 00:00 CONCLUSION: 1. Plate and screw fixation of the distal radius, as above. Assessment and Plan Plan Right radius/ulnar fractures S/t mechanical fall. Imaging: Angulated fracture of the distal radius; Ulnar styloid fracture. Orthopedic surgery consult appreciated. -Continue right sugar tong splint. -NWB right upper extremity for 6-8 weeks. -Pain control with a bowel regimen. E-FORCSE was checked. -s/p surgery. Will follow with ortho as an outpt. Nicotine dependence The patient smokes a pack daily. He has no intention to quit. -Cessation instruction. Hypokalemia Exacerbated by NPO status. -replete with PO KCl and ADAT following surgery. PPx: Ambulation Progress Note: Quality VTE Deep Vein Thrombosis/Pulmonary Embolism Present on Admission: No
== END 2018-04-03 08:37 | disposition home or self-care (01) ==
LOC: NEDA 13:45 → NEPB 13:45 → NEPHCDU 17:36
PROVIDERS: ADMIT Hospitalist; ATTEND Hospitalist
CPT/HCPCS: 73100; 73110; 76000; 80048; 85025; 85610; 85730; 86850; 86900; 86901; 90775; 94150; 96361; 96365; 96366; 96375; 96376; 99285; C1713; G0378; J0690; J1170; J1580; J2175; J2270; J2405; J2704; J3010; J3370; J7030; J7050; J7120